=== PATIENT | male | born 1945 | race Caucasian/White ===

== ENCOUNTER 2018-12-04 17:23 | Emergency (ER) | payer MEDICARE ==
[~2018-12-04] VITALS: Ht 175.3 cm; Wt 84.1 kg
[2018-12-04] MEDS ORDERED: ATOR1TAB19 PO (17:49)
[2018-12-04] MEDS ORDERED: DOFE250C PO (17:49)
[2018-12-04] MEDS ORDERED: ELIQ5TAB PO (17:49)
[2018-12-04] MEDS ORDERED: AMLO10TA5 PO (17:49)
[2018-12-04] MEDS ORDERED: FERR325T3 PO (17:49)
[2018-12-04] MEDS ORDERED: LISI10TA4 PO (17:49)
[2018-12-04 18:42] LABS: BASO % 0.6 % (0.0-1.0); EOS # 0.1 10^3/uL (0.0-0.50); EOS % 1.4 % (0.0-3.0); HEMATOCRIT 43.2 % (42.0-52.0); HEMOGLOBIN 14.5 g/dl (13.5-17.5); LYMPH # 0.8 10^3/uL (1.5-4.5); LYMPH % 11.8 % (24.0-44.0); MEAN CORPUSCULAR HEMOGLOBIN 32.3 pg (27.0-33.0); MEAN CORPUSCULAR HGB CONC 33.6 g/dl (32.0-36.5); MEAN CORPUSCULAR VOLUME 96.2 fl (80.0-96.0); MONO # 0.4 10^3/uL (0.0-0.8); MONO % 6.1 % (0.0-5.0); NEUTROPHILS # 5.5 10^3/uL (1.8-7.7); NEUTROPHILS % 79.8 % (36.0-66.0); PLATELET COUNT, AUTOMATED 196 10^3/uL (150-450); RED BLOOD COUNT 4.49 10^6/uL (4.30-6.10); WHITE BLOOD COUNT 6.9 10^3/uL (4.0-10.0)
[2018-12-04 18:45] LABS: INR 1.09; PROTHROMBIN TIME 13.8 SECONDS (11.8-14.0)
[2018-12-04 18:51] LABS: ALBUMIN 3.9 GM/DL (3.2-5.2); ALT/SGPT 34 U/L (12-78); BILIRUBIN,DIRECT 0.1 MG/DL (0.0-0.2); BILIRUBIN,TOTAL 0.5 MG/DL (0.2-1.0); BLOOD UREA NITROGEN 18 MG/DL (7-18); CALCIUM LEVEL 9.1 MG/DL (8.8-10.2); CARBON DIOXIDE LEVEL 25 MEQ/L (21-32); CHLORIDE LEVEL 108 MEQ/L (98-107); CREATININE FOR GFR 1.32 MG/DL (0.70-1.30); GLOMERULAR FILTRATION RATE 56.4 (>42); GLUCOSE, FASTING 100 MG/DL (70-100); LIPASE 267 U/L (73-393); POTASSIUM SERUM 3.6 MEQ/L (3.5-5.1); SODIUM LEVEL 142 MEQ/L (136-145); TOTAL PROTEIN 7.5 GM/DL (6.4-8.2)
[2018-12-04] MEDS ORDERED: amLODIPine 5 MG TAB PO ONE (19:15)
[2018-12-04] MEDS ORDERED: METOCLOPRAMIDE INJ 10MG/2ML VIAL (J2765) IV ONE (19:15)
[2018-12-04] MEDS ORDERED: NS 1,000 ML IV SCH (19:15)
[2018-12-04 19:21] VITALS: BP 158/92
[2018-12-04 19:35] LABS: CK-MB VALUE MASS 3.5 NG/ML (<3.6); CPK CREATINE PHOSPHOKINASE 245 U/L (39-308); MB/CK RELATIVE INDEX 1.43 (< OR =4); TROPONIN I < 0.02 NG/ML (< 0.10)
--- NOTE | 2018-12-04 20:34 | REPVR ---
EXAM: CT Head Without Contrast EXAM DATE/TIME: 12/04/2018 7:45 PM CLINICAL HISTORY: 73 years old, male; Dizziness; Additional info: Dizzy TECHNIQUE: Imaging protocol: Computed tomography images of the head without contrast. Radiation optimization: All CT scans at this facility use at least one of these dose optimization techniques: automated exposure control; mA and/or kV adjustment per patient size (includes targeted exams where dose is matched to clinical indication); or iterative reconstruction. COMPARISON: No relevant prior studies available. FINDINGS: Brain: There are scattered the foci of white matter hypodensity, likely representing small vessel ischemic disease in a patient this age. The acuity of the white matter disease is indeterminate. The white-jose differentiation is preserved demonstrating no acute territorial type infarct. There is mild increased extra-axial fluid within the frontal convexities bilaterally, likely due to mild frontal atrophy. Subdural hygroma is considered less likely. No acute intracranial hemorrhage is seen. Low-lying cerebellar tonsils are visualized which extend out of the field of view of this study. A hypodense dilated perivascular spaces identified below the left basal ganglia. Midline shift: There is no midline shift. Ventricles: No ventriculomegaly. Bones/joints: The calvarium demonstrates no evidence for a depressed fracture. Sinuses: Minimal mucosal thickening of a few anterior ethmoid air cells. Mastoid air cells: No mastoid effusion. Soft tissues: Unremarkable. Vasculature: Intracranial atherosclerosis visualized. IMPRESSION: 1. No acute intracranial hemorrhage or acute territorial type infarct. 2. There are scattered the foci of white matter hypodensity, likely representing small vessel ischemic disease in a patient this age. 3. There is mild increased extra-axial fluid within the frontal convexities bilaterally, likely due to mild frontal atrophy. 4. If further evaluation is clinically indicated, an MRI of the brain is recommended. Electronically signed by: Galo Mason On 12/04/2018 20:34:26 PM
[2018-12-04] MEDS ORDERED: NS 1,000 ML IV ONE (21:00)
[2018-12-04] MEDS ORDERED: MECL1TAB31 PO (21:58)
[2018-12-04 22:00] VITALS: BP 142/87
--- NOTE | 2018-12-06 05:49 | ECGEPIP ---
[facility] - ED Test Date: 2018-12-04 Pat Name: SHIRA WHITLOCK Department: Room: - Gender: Male Appliquer: ROBERTO CARLOS : 1945 Requested By: SHIRA Earl Order Number: [id number] Reading MD: Neto Salgado Measurements Intervals [place] Rate: 70 P: -11 CO: 190 QRS: -11 QRSD: 102 T: -5 QT: 421 QTc: 454 Interpretive Statements SINUS RHYTHM WITH OCCASIONAL SUPRAVENTRICULAR PREMATURE COMPLEXES NSTTW ABNORMALITIES NO PRIORS FOR COMPARISON Electronically Signed on 12-06-2018 5:49:45 EDT by Neto Salgado
--- NOTE | 2018-12-08 20:19 | ED PDOC ---
Post-Departure Follow-Up certified letter sent to pt re formal read of ct head. please obtain pcp name an d fax report. if no pcp refer to [facility] and fax there Leeanne Serna MD Dec 08, 2018 20:19
== END 2018-12-04 22:14 | disposition home or self-care (01) ==
LOC: M ED 17:23
DX: R11.2 Nausea with vomiting, unspecified (principal); I10 Essential (primary) hypertension; Z79.899 Other long term (current) drug therapy; Z79.01 Long term (current) use of anticoagulants
CPT/HCPCS: 70450; 80048; 80076; 82550; 82553; 83605; 83690; 83735; 84484; 85025; 85610; 85730; 93005; 96374; 99285; J2765